=== PATIENT | female | born 1985 | race Caucasian/White ===

== ENCOUNTER 2018-02-08 15:45 | Inpatient (IN) | payer BC ==
[2018-02-08] MEDS ORDERED: Lactated Ringer's 1,000 ML IV SCH (16:45)
[2018-02-08 17:21] LABS: BASO % 0.2 % (0.0-2.0); EOS % 0.3 % (0.0-4.0); HEMOGLOBIN 12.4 g/dL (11.0-16.0); LYMPH # 1.9 K/uL (1.0-4.3); MEAN CORPUSCULAR HEMOGLOBIN 27.1 pg (27.0-31.0); MEAN PLATELET VOLUME 9.3 fL (7.2-11.7); MONO # 0.7 K/uL (0.0-0.8); MONO % 5.1 % (0.0-10.0); NEUT # 10.2 K/uL (1.8-7.0); NEUT % 79.4 % (50.0-75.0); NRBC % 0.1 % (0.0-2.0); RBC 4.56 Mil/uL (3.80-5.20); RED CELL DISTRIBUTION WIDTH 16.6 % (11.5-14.5); WHITE BLOOD COUNT 12.8 K/uL (4.8-10.8)
[2018-02-08 17:51] LABS: SQUAMOUS EPITHIAL 4 /hpf (0-5); URINE BACTERIA FEW (<OCC); URINE BILIRUBIN NEGATIVE (NEGATIVE); URINE CALCIUM OXALATE CRYSTALS FEW /hpf (<OCC); URINE CLARITY Hazy (Clear); URINE COLOR Yellow (YELLOW); URINE GLUCOSE (UA) NORMAL (Normal); URINE PROTEIN 1+ mg/dL (NEGATIVE); URINE UROBILINOGEN NORMAL mg/dL (0.2-1.0)
[2018-02-08 17:52] LABS: URINE BLOOD 2+ (NEGATIVE); URINE LEUKOCYTE ESTERASE 1+ Leu/uL (Negative)
[2018-02-08] MEDS ORDERED: Bupivacaine HCl/FentaNYL Cit 100 ML EPI ONE (17:56)
[2018-02-08] MEDS ORDERED: Oxytocin 30 UNIT 30 UNITS/500 ML BAG IV SCH (18:45)
[2018-02-08] MEDS ORDERED: Oxytocin 30 UNIT 30 UNITS/500 ML BAG IV ONE (18:50)
--- NOTE | 2018-02-08 19:10 | OBADHP ---
Datetime: 02/08/2018 18:33 Admit Comment, IP Provider: Patient is a 33 year old LMP (05/07/17) EDC (02/11/18) by US at 39.4 week s who presents to [facility] for abdominal pain and contractions that started 14:45. Patient was seen in e clinic earlier today and noted for SVE of 2cm. Patient admits to normal bloody show but denies leak agae of fluid. Patient admits to movement. PMHx: Denies PSHx: Denies FHx: Denies Allergies: Denies OB Hx: G1: Current, no complications. HSV-1 positive Resort Manager Hx: Menarche: 13 Triad: 13/regular Denies hx of fibroids and ovarian cyst VS: As stated above Physical Examination: As stated above A/P:Patient is a 33 year old LMP (05/07/17) EDC (02/11/18) by US at 39.4 weeks who presents to [facility] for abdominal pain and contractions that started 14:45. 1. Admit to unit 2. Admission labs 3. CEFM and Rhame 4. Start IV hydration 5. Request for epidural, will contact anesthesia 6. Continue labor management 7. Anticipate normal spontaneous vaginal delivery Private attending, Dr. Coleman made aware All plans and management discussed with Dr. Chilango Key, PGY-2 Pelvic Type - PN: Adequate Extremities - PN: Normal Abdomen - PN: Normal Back - PN: Normal Breast - PN: Not Done Lungs - PN: Normal Heart - PN: Normal Thyroid - PN: Normal Neurologic - PN: Normal HEENT - PN: Normal General - PN: Normal Presentation-Admit: Vertex FHR - Baseline A Provider: 150 Membranes, Provider: Intact Contraction Comments Provider: Q 2-3 mins Comments, ACOG Physical Exam: Gen: NAD HEENT: Normacephalice, atramatic Cardio: RRR, no murmur Pulm: CTA b/l Abdomen: Soft, gravid Ext: No clubbing, no cyanosis and no edema SVE: /-2 Gestation - Est Wks by US: 39.2 Vital Signs Provider: Reviewed; Within Normal Limits IP Chief Complaint: Uterine contractions NICHD Variability Prov Fetus A: Moderate 6-25bpm NICHD Accel Fetus A IP Provider: 15X15 FHR Category Provider Fetus A: Category I NICHD Decel Fetus A IP Provider: None Dilatation, Provider: 8 Effacement, Provider: 100 Station, Provider: -2 Genitourinary Exam: Normal DTRs - PN: Normal EGA AdmitDate IP: 39.4 IP Adm Impression: Term, intrauterine IP Admit Plan: Admit to unit; Initiate labor protocol
[2018-02-08 19:48] LABS: ALB/GLOB RATIO 1.1 (1.0-2.1); ALBUMIN 3.7 g/dL (3.5-5.0); ALT/SGPT 16 U/L (9-52); AST/SGOT 27 U/L (14-36); BLOOD UREA NITROGEN 10 mg/dL (7-17); CALCIUM 9.2 mg/dl (8.6-10.4); GFR NON-AFRICAN AMERICAN > 60
--- NOTE | 2018-02-08 21:28 | OBADHP ---
Datetime: 02/08/2018 21:26 FHR - Baseline A Provider: 130 Contraction Comments Provider: q1-3 NICHD Variability Prov Fetus A: Moderate 6-25bpm NICHD Accel Fetus A IP Provider: 15X15 Dilatation, Provider: 10 Effacement, Provider: 100 Station, Provider: 0 Datetime: 02/08/2018 18:33 IP Hx Assessment: The History has been Reviewed and is Current EGA AdmitDate IP: 39.4
--- NOTE | 2018-02-08 21:31 | OBPN ---
Datetime: 02/08/2018 21:26 IP Progress Impression: Normal progression of labor IP Procedures: Sterile Vag Exam IP Progress Plan: Continue present management Contraction Comments Provider: q1-3 FHR - Baseline A Provider: 130 IP Progress Note Comment: pt was examined at bed side ve fd/100/0 will start pushing with ctxs anticipate Vital Signs Provider: Reviewed; Within Normal Limits NICHD Accel Fetus A IP Provider: 15X15 FHR Category Provider Fetus A: Category I NICHD Variability Prov Fetus A: Moderate 6-25bpm Dilatation, Provider: 10 Effacement, Provider: 100 Station, Provider: 0 Datetime: 02/08/2018 18:33 Membranes, Provider: Intact Gestation - Est Wks by US: 39.2 Presentation-Admit: Vertex NICHD Decel Fetus A IP Provider: None
[2018-02-08] MEDS ORDERED: Oxycodone/Acetaminophen 5/325 mg Tab PO PRN ×2 (21:36)
[2018-02-08] MEDS ORDERED: Benzocaine/Menthol 20%-0.5% Topical Spray (60 ml) TOP PRN (21:36)
[2018-02-08] MEDS ORDERED: Lidocaine 2% MPF (5 ml) Inj ONE (21:59)
--- NOTE | 2018-02-08 22:44 | OBDS ---
DELIVERY PERSONNEL Nurse Serology Technician Certified: N/A Delivery Doctor: Pacheco Coleman MD Scrub Nurse: N/Hortencia File Machine Operator: Shanel Ordonez RN Anesthesiologist: DR Richard VEGA Senior Accountant Cpa: SAME Resident: DR CALDWELL MATERNAL INFORMATION Delivery Anesthesia: Epidural Estimated Blood Loss (ml): 300 Provider Comments: dr coleman private vaccu assisted ddelivcery read the note LABOR SUMMARY EDC: 02/11/2018 00:00 LABOR INFORMATION Group B Beta Strep: Negative MEMBRANES Membranes Rupture Method: Spontaneous Rupture of Membranes: 02/08/2018 19:15 Length of Rupture (hrs): 2.65 STAGES OF LABOR Stage 3 hrs: 0 Stage 3 min: 2 VAGINAL DELIVERY Episiotomy: None Laceration Extension: Second Degree Laceration Type: Perineal Laceration Repair Note: repaired with 2 urcy and 3 chromic no com BABY A INFORMATION Delivery Date/Time: 02/08/2018 21:54 Method of Delivery: Vaginal Born in Route : No : N/A Forceps: N/A Vacuum Extraction: Successful ASSISTED DELIVERY BABY A Indication for Assisted Delivery: arreset of descent/maternal exhaustion Catheter Prior to Procedure: Yes Station Vacuum/Forcep Apply: +2 Position Vacuum/Forcep Apply: Left Occipital Anterior Vacuum Number of Pulls: 1 Vacuum Number of PopOffs: 0 Vacuum Maximum Pressure Obtained: 80 Reduce Pressure btwn Ctx: No Vacuum Leak Hunter: MYSTIC 11 M STYLE MUSHROOM CUP Total Time Vacuum Applied: 10 SECS. Type of Forceps: N/A Vacuum/Forceps Comment: pateint pushed for 2 hrs and no desent with ,atenal exhaustion. vaccum apppl ied at 2+station. 1 pull no susanna offs. baby delivrd aden compound. peads present. 8/9 no com SHOULDER DYSTOCIA BABY A Delivery Date/Time: 02/08/2018 21:54 PRESENTATION/POSITION BABY A Presentation: Cephalic Cephalic Presentation: Vertex PLACENTA INFORMATION BABY A Placenta Delivery Time : 02/08/2018 21:56 Placenta Method of Delivery: Spontaneous Placenta Status: Delivered SCORES BABY A Heart Rate 1 min: >100 bpm Resp Effort 1 min: Good Cry Reflex Irritability 1 min: Cough or Sneeze or Pulls Away Muscle Tone 1 min: Some Flexion of Extremities Color 1 min: Body [place], Extremities Blue Resuscitation Effort 1 min: N/A SCORE 1 MIN: 8 Heart Rate 5 min: >100 bpm Resp Effort 5 min: Good Cry Reflex Irritability 5 min: Cough or Sneeze or Pulls Away Muscle Tone 5 min: Active Motion Color 5 min: Body [place], Extremities Blue SCORE 5 MIN: 9 INFANT INFORMATION BABY A Gestational Age at Delivery: 39.4 Gestational Status: Term Infant Outcome : Liveborn Infant Condition : Stable Infant Sex: Female IDENTIFICATION/MEDS BABY A ID Band Number: [id number] ID Band Location: Left Leg; Left Arm Sensor Applied: Yes Sensor Number: [id number] Sensor Location : Cord Clamp Vitamin K Given : Not Given Erythromycin Given: Not Given WEIGHT/LENGTH BABY A Infant Birthweight (gms): 3370 Weight (lb): 7 Infant Weight (oz): 7 Length Inches: 20.50 Length cms: 52.1 CORD INFORMATION BABY A No. Cord Vessels: #3 Nuchal Cord : N/A Cord Blood Taken: Yes
[2018-02-09 07:49] LABS: BASO % 0.1 % (0.0-2.0); EOS % 0.2 % (0.0-4.0); HEMOGLOBIN 10.5 g/dL (11.0-16.0); LYMPH # 1.3 K/uL (1.0-4.3); LYMPH % 11.9 % (20.0-40.0); MEAN CELL VOLUME 82.3 fL (81.0-99.0); MEAN CORPUSCULAR HEMOGLOBIN 27.7 pg (27.0-31.0); MEAN CORPUSCULAR HGB CONC 33.7 g/dL (33.0-37.0); MEAN PLATELET VOLUME 9.2 fL (7.2-11.7); MONO # 0.8 K/uL (0.0-0.8); NEUT # 8.8 K/uL (1.8-7.0); NEUT % 80.8 % (50.0-75.0); RBC 3.77 Mil/uL (3.80-5.20); RED CELL DISTRIBUTION WIDTH 16.3 % (11.5-14.5)
[2018-02-10] MEDS ORDERED: Influenza Vaccine 60 MCG/0.5 ML SYR (3 yr & up) IM ONE (10:00)
--- NOTE | 2018-02-10 11:34 | OBDCSUM ---
Datetime: 02/10/2018 10:41 Discharged to, Provider: Home Follow up at, Provider: Dr Coleman Disch Instr Activity: Normal activity; May Shower Disch Instr Diet: Regular Discharge Diet restrict Prov: none Discharge Instructions, Provider: Routine instructions given Discharge Diagnosis, Provider: Term Delivered Discharge Time: 02/10/2018 10:41 Follow up in weeks, Provider: 6 weeks Disch Referrals: None Disch Activity Restrictions: No exercising; No lifting; No sexual activity; Nothing in vagina - Inte rcourse, tampons, douche Discharge Comment, Provider: Nothing per vagina - no intercourse, no tampons, no douche.
--- NOTE | 2018-02-10 11:34 | OBPPN ---
Datetime: 02/10/2018 10:26 PP Pain Prov: Within normal limits PP Nausea Prov: Denies PP Flatus Prov: Yes PP BM Prov: No PP Breasts Prov: Normal PP Heart Prov: Normal PP Lungs Prov: Normal PP Abdomen/Uterus Prov: Normal PP Lochia Prov: Normal PP CVA Tenderness Prov: Normal PP Extremities Prov: Normal PP Comments Phys Exam Prov: Patient is alert and orientedx3. Bowel soundsx4 present. Abdomen soft, nontender. Fundus nontender, at the level of umbilicus. PP Impression Prov: Normal progression PP Plan Prov: Discharge PP Progress Note Prov: Patient seen and examined at bedside. Patient states her pain is currently ma nageable with Motrin. She states her lochia is currently manageable, states she goes through 5 pads d aily currently. She has had no nausea or vomiting. She has passed flatus, however has not had a xander l movement. Patient is . Patient encouraged ambulation, encouraged PO fluid intake. Mary ent instructed that she may shower after discharge today. Patient instructed to follow up in office a t 6 weeks, and to take Motrin as prescribed for pain. Patient instructed to have complete vaginal res t with no sexual activity, no tampons, no douche. IP PP Procedures: None Vital Signs Provider PP: Reviewed; Within Normal Limits
[2018-02-11 00:54] VITALS: BP 113/75; PULSE 89; RESP 20; TEMP 98; O2SAT 98
== END 2018-02-10 20:37 | disposition home or self-care (01) | DRG 807 ==
LOC: C.EROB 15:45 → EDBD 16:25 → C.4D 16:25 → C.4M 23:55
PROVIDERS: ADMIT Obstetrics & Gynecology; ATTEND Obstetrics & Gynecology
PROC: 10D07Z6 Extraction of Products of Conception, Vacuum, Via Natural or Artificial Opening (ICD-10-PCS; principal; 2018-02-08)
PROC: 0KQM0ZZ Repair Perineum Muscle, Open Approach (ICD-10-PCS; 2018-02-08)
DX: O62.1 Secondary uterine inertia (principal); Z37.0 Single live birth; O75.81 Maternal exhaustion complicating labor and delivery; O70.1 Second degree perineal laceration during delivery; Z3A.39 39 weeks gestation of pregnancy